=== PATIENT | female | born 1960 | race Caucasian/White ===

== ENCOUNTER 2018-06-15 19:40 | Emergency (ER) | payer BC ==
[~2018-06-15] VITALS: Ht 170.2 cm; Wt 113.4 kg
[2018-06-15] MEDS ORDERED: NORCO 5-325 TA1 EACH PO (21:57)
[2018-06-15] MEDS ORDERED: MEDROLDOSEPACK PO (21:57)
[2018-06-16] MEDS ORDERED: OXYMORPHONE HCL30 MG PO (02:14)
[2018-06-16] MEDS ORDERED: NORCO 5-325 TA1 EACH PO (02:14)
[2018-06-16] MEDS ORDERED: OXYCONTIN10 M1 PO (02:14)
[2018-06-16 02:20] VITALS: BP 172/98
== END 2018-06-16 04:13 | disposition home or self-care (01) ==
LOC: ER 19:40
DX: M54.5 Low back pain (principal); Z76.0 Encounter for issue of repeat prescription; I10 Essential (primary) hypertension